=== PATIENT | female | born 1960 | race Caucasian/White ===

== ENCOUNTER 2020-01-28 12:55 | Outpatient (REF) | payer MEDICAID, SELFPAY | END 2020-01-28 12:56 | disposition home or self-care (01) | LOC: HO.MAMMO 12:55 | PROVIDERS: Visit Provider Pediatrics | DX: Z12.31 Encounter for screening mammogram for malignant neoplasm of breast (principal) ==

== ENCOUNTER 2020-02-18 12:11 | Outpatient (REF) | payer MEDICAID, SELFPAY ==
--- NOTE | 2020-02-18 13:01 | MM_ITS ---
EXAMINATION: BONE DENSITOMETRY CLINICAL INDICATION: Age-related osteoporosis without current pathological fracture. COMPARISON: Previous BD dated 10/06/2015 and baseline BD dated 07/27/2010. TECHNIQUE: Using a goAct DXA System (software version: 13.1) manufactured by [employer], dual-energy x-ray absorptiometry was performed of the left hip and left forearm radius 33%. Prior spinal rodding precludes lumbar bone mineral density measurement. The images are of good technical quality. Summary results are attached. FINDINGS: LEFT FEMUR, NECK: Current: BMD 0.743 g/cm2, Z-score -0.5, T-score -2.1, osteopenia. Prior: BMD 0.806 g/cm2. Baseline: BMD 0.719 g/cm2. LEFT FEMUR, TOTAL: Current: BMD 0.750 g/cm2, Z-score -0.7, T-score -2.0, osteopenia, 4.0% increase from previous, 2.3% increase from baseline (<5% change is not significant). Prior: BMD 0.721 g/cm2. Baseline: BMD 0.733 g/cm2. LEFT FOREARM RADIUS 33%: Current: BMD 0.867 g/cm2, Z-score 0.7, T-score -0.2, normal, 0.8% decrease from previous, 2.4% decrease from baseline (<5% change is not significant). Prior: BMD 0.874 g/cm2. Baseline: BMD 0.888 g/cm2. IDENTIFIED RISK FACTORS: Osteoporosis. Height loss. Low body weight. Secondary osteoporosis (early menopause). HISTORY OF FRACTURE: None listed. MEDICATIONS: Calcium supplement and/or multivitamin. Bisphosphonates. MM/XR DEXA axial skeleton IMPRESSION: 1. DIAGNOSIS: Osteopenia based on the lowest T-score value of -2.1 in the femoral neck applying World Health Organization criteria. 2. 10-YEAR FRACTURE RISK PREDICTION, FRAX: Major osteoporotic fracture (clinical spine, forearm, hip or shoulder) 9.3%. Hip fracture 1.4%. 3. Treatment Recommendations: NOF guidelines recommend consideration for treatment in postmenopausal women and men age 50 and older presenting with the following: -A hip or vertebral (clinical or morphometric) fracture. -T-score less than or equal to -2.5 at the femoral neck or spine after appropriate evaluation to exclude secondary causes. -Low bone mass at the hip or spine and a 10-year fracture probability by FRAX of greater than or equal to 3% for hip fracture or greater than or equal to 20% for major osteoporotic fracture based on the [place] adapted WHO algorithm. 4. Other Recommendations: All treatment decisions require clinical judgment and consideration of individual patient factors, including patient preferences, comorbidities, previous drug use, risk factors not captured in the FRAX model (e.g. frailty, falls, vitamin D deficiency, increased bone turnover, interval significant decline in bone density) and possible under or overestimation of fracture risk by FRAX. Additional medical evaluation for secondary cause of low bone mineral density may be appropriate. FUTURE SCAN RECOMMENDATION: People with diagnosed cases of osteoporosis or at high risk for fracture should have regular bone mineral density tests. For patients eligible for Medicare, routine testing is allowed once every 2 years. The testing frequency can be increased to one year for patients who have rapidly progressing disease, those who are receiving or discontinuing medical therapy to restore bone mass, or have additional risk factors.
[2020-02-18 13:23] LABS: Ammonia 31 umol/L (13-55)
[2020-02-18 13:33] LABS: Alanine Aminotransferase 19 U/L (0-31); Albumin Level 4.3 g/dL (3.5-5.0); Alkaline Phosphatase 77 U/L (39-117); Anion Gap 17 (12-20); Aspartate Amino Transferase 27 U/L (5-31); Bilirubin Total 0.4 mg/dL (0.0-1.0); Blood Urea Nitrogen 34 mg/dL (9-16); Calcium 9.7 mg/dL (8.4-10.2); Carbon Dioxide 33 mmol/L (22-29); Chloride 95 mmol/L (96-108); Estimated Glomerular Filt Rate > 60; Glucose Random 85 mg/dL (60-115); Potassium 3.6 mmol/l (3.3-5.1); Sodium 141 mmol/L (135-145); Total Protein 7.1 g/dL (6.5-8.0)
[2020-02-18 14:32] LABS: Valproate 60.2 mcg/mL (50.0-100.0)
== END 2020-02-18 12:12 | disposition home or self-care (01) ==
LOC: HO.MAMMO 12:11
PROVIDERS: Referring Provider General Practice; Visit Provider Pediatrics
DX: F31.9 Bipolar disorder, unspecified (principal); F41.9 Anxiety disorder, unspecified; M81.0 Age-related osteoporosis without current pathological fracture
CPT/HCPCS: 77080; 80053; 80164; 82140

== ENCOUNTER 2020-07-11 12:22 | Outpatient (REF) | payer MEDICAID, SELFPAY | END 2020-07-11 12:23 | disposition home or self-care (01) | LOC: HO.MAMMO 12:22 | PROVIDERS: PCP Pediatrics; Visit Provider Pediatrics | DX: Z13.89 Encounter for screening for other disorder (principal) ==

== ENCOUNTER 2021-05-11 07:57 | Outpatient (REF) | payer MEDICAID, SELFPAY ==
--- NOTE | ~2021-05-11 | FL_ITS ---
EXAMINATION: XR GI SERIES CLINICAL INFORMATION: Dysphagia. COMPARISON: None TECHNIQUE: Routine single-contrast barium swallow and upper GI was performed in supine position. FINDINGS: Following oral administration of thin barium in semi-supine position, there is normal propagation of bolus from the oral cavity through the pharynx, esophagus into stomach without any evidence of obstruction, narrowing or stricture. No laryngeal penetration or aspiration seen. There is no hiatal hernia or reflux either. There is a solitary [place] [facility] for [id number] dextroscoliosis of the dorsal spine. The stomach, duodenal bulb and duodenal sweep are normal caliber. The mucosal pattern of this esophagus, stomach and the duodenum is normal. FLUOROSCOPY TIME: 1.5 minutes. DOSE AREA PRODUCT: 5.409 uGy-m2 (microgray-meter squared) FL/FL upper GI series IMPRESSION: Unremarkable single-contrast upper GI exam in semi-supine position. There is no esophageal obstruction, narrowing. No reflux or hiatal hernia. The stomach is unremarkable. There is a solitary [facility] for correction of significant dextroscoliosis.
== END 2021-05-11 07:58 | disposition home or self-care (01) ==
LOC: HO.XRAY 07:57
PROVIDERS: PCP Pediatrics; Visit Provider Pediatrics
DX: R47.02 Dysphasia (principal)
CPT/HCPCS: 74240

== ENCOUNTER 2023-02-28 11:13 | Outpatient (REF) | payer MEDICAID, SELFPAY ==
[2023-03-03 05:33] LABS: HBS Num1 0.08 mIU/mL (0-7.99); HBc Num1 0.12 S/CO (0.00-0.79); HBsAGNum1 0.37 S/CO (0.00-0.99); Hepatitis A Antibody IgM 0.25 Index (0-0.79); Hepatitis B Core Antibody Nonreactive (Nonreactive); Hepatitis B Surface Antigen Negative (Negative); ~HepC Num1 0.08 S/CO (0.00-0.79); ~Hepatitis A Antibody IgM Nonreactive (Nonreactive); ~Hepatitis B Surface Antibody NONREACTIVE (Nonreactive); ~Hepatitis C Antibody Nonreactive (Nonreactive)
[2023-03-03 21:19] LABS: Rubella IgG Antibody 1.19 Index
== END 2023-02-28 11:14 | disposition home or self-care (01) ==
LOC: HO.CHCLDS 11:13
PROVIDERS: Visit Provider Pediatrics
DX: Z01.84 Encounter for antibody response examination (principal)
CPT/HCPCS: 36415; 86704; 86706; 86709; 86735; 86762; 86765; 86787; 86803; 87340